=== PATIENT | male | born 1960 | race Caucasian/White ===

== ENCOUNTER 2017-04-30 12:19 | Emergency (ER) | payer BC ==
[2017-04-30] MEDS ORDERED: PROMETHAZINE HCL 25 MG TABLET PO ONE (12:36)
[2017-04-30] MEDS ORDERED: OXYCODONE-ACETAMINOPHEN 5-325 MG TABLET PO ONE (12:36)
--- NOTE | 2017-04-30 12:41 | ER Document Report ---
ED Medical Screen (RME) - General Chief Complaint: Headache, Worst Ever Stated Complaint: HEADACHE Time Seen by Provider: 04/30/17 12:35 Notes: Patient says that he was awakened during the night about 1 or 2 AM, with a stabbing headache in the back of his head which has persisted ever since. He has vomited a couple times. Has never had a headache like this and does not have headaches of any sort. He has not been ill recently. No fevers. No head congestion. [place] and does not do heavy lifting. He was off duty and did not work yesterday. Has noticed some blurry vision. Chronic back problem. Patient went to a local urgent care where he says they did lab work which he was told was normal and referred here for further evaluation. TRAVEL OUTSIDE OF THE [place] IN LAST 30 DAYS: No - Related Data Allergies/Adverse Reactions: No Known Allergies Allergy (Verified 04/30/17 12:23) Home Medications: Current Home Medications Gabapentin [Gabapentin] 300 mg PO TID 04/30/17 [History] Ibuprofen 800 mg PO PRN PRN 04/30/17 [History] Past Medical History - Social History Chew tobacco use (# tins/day): No Frequency of alcohol use: Occasional Drug Abuse: None Renal/ Medical History: Denies: Hx Peritoneal Dialysis Physical Exam - Vital signs Vitals: Temp Pulse Resp BP Pulse Ox 98.5 F 67 16 148/99 H 99 04/30/17 12:24 04/30/17 12:24 04/30/17 12:24 04/30/17 12:24 04/30/17 12:24 Course - Vital Signs Vital signs: Temp Pulse Resp BP Pulse Ox 98.5 F 67 16 148/99 H 99 04/30/17 12:24 04/30/17 12:24 04/30/17 12:24 04/30/17 12:24 04/30/17 12:24
[2017-04-30 12:56] LABS: APPEARANCE,URINE CLEAR; BILIRUBIN,URINE NEGATIVE (NEGATIVE); GLUCOSE, URINE NEGATIVE (NEGATIVE); KETONES,URINE NEGATIVE (NEGATIVE); LEUKOCYTE ESTERASE,URINE NEGATIVE (NEGATIVE); NITRITE,URINE NEGATIVE (NEGATIVE); PROTEIN,URINE NEGATIVE (NEGATIVE); URINE SPECIFIC GRAVITY 1.019; UROBILINOGEN,URINE NEGATIVE mg/dL (<2.0)
--- NOTE | 2017-04-30 13:25 | RADIOLOGY REPORT (SQ) ---
EXAM DESCRIPTION: CT HEAD WITHOUT COMPLETED DATE/TIME: 04/30/2017 12:58 pm REASON FOR STUDY: Sudden onset pain back of head, awakened from slee COMPARISON: None. TECHNIQUE: Axial images acquired through the brain without intravenous contrast. Images reviewed wi th bone, brain and subdural windows. Images stored on PACS. All CT scanners at this facility use dose modulation, iterative reconstruction, and/or weight based d osing when appropriate to reduce radiation dose to as low as reasonably achievable (ALARA). [facility]: Dose Right [facility]: CareDose [facility]: Dose Right [facility]: Teradose 4D [facility]: Smart Flat.to RADIATION DOSE: CT Rad equipment meets quality standard of care and radiation dose reduction techniq ues were employed. CTDIvol: 64.6 mGy. DLP: 1163 mGy-cm. mGy. LIMITATIONS: None. FINDINGS: VENTRICLES: Normal size and contour. CEREBRUM: No masses. No hemorrhage. No midline shift. No evidence for acute infarction. Normal gra y/white matter differentiation. No areas of low density in the white matter. CEREBELLUM: No masses. No hemorrhage. No alteration of density. No evidence for acute infarction. EXTRAAXIAL SPACES: No fluid collections. No masses. ORBITS AND GLOBE: No intra- or extraconal masses. Normal contour of globe without masses. CALVARIUM: No fracture. PARANASAL SINUSES: No fluid or mucosal thickening. SOFT TISSUES: No mass or hematoma. OTHER: No other significant finding. IMPRESSION: NORMAL BRAIN CT WITHOUT CONTRAST. EVIDENCE OF ACUTE STROKE: NO. COMMENT: Quality ID # [id number]: Final reports with documentation of one or more dose reduction techniques (e.g., Automated exposure control, adjustment of the mA and/or kV according to patient size, use of iterative reconstruction technique) TECHNICAL DOCUMENTATION: JOB ID: [id number]- All Rights Reserved
[2017-04-30] MEDS ORDERED: PROCHLORPERAZINE EDISYLATE INJ 10 MG/2 ML VIAL IV ONE (13:43)
[2017-04-30] MEDS ORDERED: NORMAL SALINE 1000 ML 1,000 ML IV ONE (13:43)
[2017-04-30] MEDS ORDERED: ONDANSETRON HCL INJ/PF 4 MG/2 ML SDV IV ONE (13:43)
[2017-04-30 14:24] LABS: ABSOLUTE BASOPHILS # (AUTO) 0.1 10^3/uL (0.0-0.2); ABSOLUTE EOSINOPHILS # (AUTO) 0.2 10^3/uL (0.0-0.6); ABSOLUTE LYMPHOCYTES (AUTO) 2.5 10^3/uL (0.5-4.7); ABSOLUTE MONOCYTES (AUTO) 0.6 10^3/uL (0.1-1.4); ABSOLUTE NEUT (AUTO) 6.3 10^3/uL (1.7-8.2); BASOPHILS % (AUTO) 0.7 % (0-2); EOSINOPHILS % (AUTO) 2.2 % (0-6); HEMATOCRIT 45.6 % (37.9-51.0); HEMOGLOBIN 15.4 g/dL (13.5-17.0); HGB HCT DIFFERENCE 0.6; LYMPHOCYTES % (AUTO) 25.9 % (13-45); MEAN CORPUSCULAR HEMOGLOBIN 29.2 pg (27.0-33.4); MEAN CORPUSCULAR HGB CONC 33.7 g/dL (32.0-36.0); MEAN CORPUSCULAR VOLUME 87 fl (80-97); RED BLOOD COUNT 5.26 10^6/uL (4.35-5.55); SEGMENTED NEUTROPHILS % (AUTO) 65.2 % (42-78); WHITE BLOOD COUNT 9.7 10^3/uL (4.0-10.5)
[2017-04-30 14:30] LABS: PROTHROMBIN TIME 13.2 SEC (11.4-15.4)
[2017-04-30 14:31] LABS: PARTIAL THROMBOPLASTIN TIME 29.2 SEC (23.5-35.8)
[2017-04-30 14:48] LABS: ALANINE AMINOTRANSFERASE 39 U/L (21-72); ALBUMIN 4.5 g/dL (3.5-5.0); ALKALINE PHOSPHATASE 72 U/L (38-126); ANION GAP 12 (5-19); ASPARTATE AMINO TRANSFERASE 18 U/L (17-59); BILIRUBIN,DIRECT 0.3 mg/dL (0.0-0.4); BILIRUBIN,TOTAL 0.9 mg/dL (0.2-1.3); BLOOD UREA NITROGEN 20 mg/dL (7-20); CALCIUM 9.9 mg/dL (8.4-10.2); CARBON DIOXIDE 26 mmol/L (22-30); CHLORIDE 105 mmol/L (98-107); CREATININE RESULT 0.82 mg/dL (0.52-1.25); GLUCOSE 93 mg/dL (75-110); LIPASE 79.7 U/L (23-300); POTASSIUM 4.8 mmol/L (3.6-5.0); SODIUM 142.6 mmol/L (137-145); TOTAL PROTEIN 6.9 g/dL (6.3-8.2)
[2017-04-30 15:10] LABS: GLUCOSE,CSF 52 mg/dL (40-70)
--- NOTE | 2017-04-30 15:11 | ER Document Report ---
ED General - General Chief Complaint: Headache, Worst Ever Stated Complaint: HEADACHE Time Seen by Provider: 04/30/17 12:35 TRAVEL OUTSIDE OF THE [place] IN LAST 30 DAYS: No - HPI Patient complains to provider of: Headache Notes: Patient coming in for evaluation of headache. Patient states diffuse will come up in the middle night around 1 2:00. Patient states feels like something is stabbing in the head. Patient does admit to having a history of "blood on my brain". Patient is unaware if this was due to an aneurysm or blood vessel bleeding states that he does not believe any clips were performed. States he was in hospital for a few days and then he was discharged home. Denies any trauma denies any changes in medication denies any blood thinning medication. Patient is resting comfortably upon my evaluation patient was seen in my local urgent care for worse headache. - Related Data Allergies/Adverse Reactions: No Known Allergies Allergy (Verified 04/30/17 12:23) Home Medications: Current Home Medications Gabapentin [Gabapentin] 300 mg PO TID 04/30/17 [History] Ibuprofen 800 mg PO PRN PRN 04/30/17 [History] Past Medical History - Social History Smoking Status: Current Every Day Smoker Chew tobacco use (# tins/day): No Frequency of alcohol use: Occasional Drug Abuse: None Patient has suicidal ideation: No Patient has homicidal ideation: No Renal/ Medical History: Denies: Hx Peritoneal Dialysis Review of Systems - Review of Systems Constitutional: No symptoms reported EENT: No symptoms reported Cardiovascular: No symptoms reported Respiratory: No symptoms reported Gastrointestinal: No symptoms reported Genitourinary: No symptoms reported Male Genitourinary: No symptoms reported Musculoskeletal: No symptoms reported Skin: No symptoms reported Hematologic/Lymphatic: No symptoms reported Neurological/Psychological: Headaches -: Yes All other systems reviewed and negative Physical Exam - Vital signs Vitals: Temp Pulse Resp BP Pulse Ox 98.5 F 67 16 148/99 H 99 04/30/17 12:24 04/30/17 12:24 04/30/17 12:24 04/30/17 12:24 04/30/17 12:24 Interpretation: Normal - General General appearance: Appears well, Alert - HEENT Head: Normocephalic, Atraumatic Eyes: Normal Pupils: PERRL - Respiratory Respiratory status: No respiratory distress Chest status: Nontender Breath sounds: Normal Chest palpation: Normal - Cardiovascular Rhythm: Regular Heart sounds: Normal auscultation Murmur: No - Abdominal Inspection: Normal Distension: No distension Bowel sounds: Normal Tenderness: Nontender Organomegaly: No organomegaly - Back Back: Normal, Nontender - Extremities General upper extremity: Normal inspection, Nontender, Normal color, Normal ROM , Normal temperature General lower extremity: Normal inspection, Nontender, Normal color, Normal ROM , Normal temperature, Normal weight bearing. No: Neema's sign - Neurological Neuro grossly intact: Yes Cognition: Normal Orientation: AAOx4 [place] Coma Scale Eye Opening: Spontaneous [place] Coma Scale Verbal: Oriented [place] Coma Scale Motor: Obeys Commands [place] Coma Scale Total: 15 Speech: Normal Motor strength normal: LUE, RUE, LLE, RLE Sensory: Normal - Psychological Associated symptoms: Normal affect, Normal mood - Skin Skin Temperature: Warm Skin Moisture: Dry Skin Color: Normal Course - Re-evaluation Re-evalutation: 04/30/17 15:08 Due to patient's history CT scan of a negative lumbar puncture was performed currently waiting for results. 04/30/17 16:13 The patient presents with headache without signs of SAW GRINDER bleed, stroke, infection , or other serious etiology. The patient is neurologically intact. Given the extremely low risk of these diagnoses further testing and evaluation for these possibilities does not appear to be indicated at this time. The patient has been instructed to return if the symptoms worsen or change in any way.. Patient feeling better. I was informed by the laboratory staff that to 1 did not have enough CSF fluid in it for them to be analyzed. However to 4 only has 1 red blood cell. Not consistent with subarachnoid hemorrhage. Patient feeling better more likely is migraine patient was discharged home prescription for Compazine Zofran encouraged follow-up primary care physician. - Vital Signs Vital signs: Temp Pulse Resp BP Pulse Ox 98.5 F 67 15 148/99 H 97 04/30/17 12:24 04/30/17 12:24 04/30/17 14:32 04/30/17 12:24 04/30/17 14:32 - Laboratory Result Diagrams: 04/30/17 14:15 04/30/17 14:15 Laboratory results interpreted by me: 04/30/17 14:32 CSF Total Protein 69 H Procedures - Lumbar Puncture Lumbar puncture Consent obtained: Yes Lumbar puncture pre-procedure: Sterile PPE donned, Betadine prep applied, Chloraprep applied Patient position: Sitting Needle size: 22 Lumbar puncture location: l4/l5 Anesthetic type: 1% Lidocaine - 5 mL's of anesthetic: 2 Amount/type of drainage: CLEAR CSF Number of attempts: 1 Complications: No Critical Care Note - Critical Care Note Total time excluding time spent on procedures (mins): 0 Discharge - Discharge Clinical Impression: Headache Qualifiers: Headache type: unspecified Headache chronicity pattern: unspecified pattern Intractability: not intractable Qualified Code(s): R51 - Headache Condition: Good Disposition: HOME, SELF-CARE Instructions: Headache ([facility]), Intravenous Compazine for Headaches ([facility]) Additional Instructions: Your seen today for a headache. Her laboratory studies do not show any signs of bleeding in her head. Her CAT scan is also negative. More likely experienced underlying migraine. The medication that we gave with your IV to relieve her headache was called Compazine and Zofran. He may take the tablets prescribed together for your headache. Return to ER symptoms worsen. Prescriptions: Ondansetron [Zofran Odt 4 mg Tablet] 4 mg PO Q6 #20 tab.rapdis Prochlorperazine Maleate [Compazine] 5 mg PO Q6 #20 tablet Referrals: DAVE BECKMAN MD [Primary Care Provider] - Follow up in 3-5 days
[2017-04-30 15:55] LABS: APPEARANCE ALL TUBES CLEAR
[2017-04-30 15:56] LABS: RBC DILUENT USED NONE USED; RBC DILUTION FACTOR 1; RBC SIDE 1 0; RBC SIDE 2 2; TOTAL RBC SQUARES COUNTED 225
[2017-04-30 15:57] LABS: STAIN REACTIVITY CHECK ACCEPTABLE; WHITE BLOOD CELL,CSF 1 /uL (0-5)
[2017-04-30] MEDS ORDERED: KETOROLAC TROMETHAMINE INJ/PF 30 MG/1 ML SDV IV ONE (16:11)
[2017-04-30 16:21] VITALS: BP 136/87
--- NOTE | 2017-05-01 06:08 | EKG REPORT ---
SEVERITY:- NORMAL ECG - SINUS RHYTHM : Confirmed by: Gisele Mejia MD 01-May-2017 06:07:32
[2017-05-01 08:51] LABS: HSV SOURCE CSF
[2017-05-02 19:36] LABS: HSV I DNA Negative (Negative)
== END 2017-04-30 16:26 | disposition home or self-care (01) ==
LOC: ER 12:19
PROC: 00JU3ZZ Inspection of Spinal Canal, Percutaneous Approach (ICD-10-PCS; principal; 2017-04-30)
DX: R51 Headache (principal); F17.200 Nicotine dependence, unspecified, uncomplicated
CPT/HCPCS: 93005; 99284; 96361; 96374; 96375; 87529; 36415; 87070; 87205; 83690; 85025; 85610; 85730; 89050; 82945; 84157; 80053; 81001; 84484; 70450; 93010; 62270; J0780; J2405; J7030